=== PATIENT | male | born 1975 | race Caucasian/White ===

== ENCOUNTER → 2018-12-25 | Outpatient (CLI) | payer OTHER ==
--- NOTE | 2018-12-25 11:12 | Diagnostic Imaging Report ---
INDICATION: Injury to right knee. TECHNIQUE: AP and lateral views of the right knee were obtained. FINDINGS: No fracture or acute bony abnormality is seen. There is no overt joint effusion or joint space narrowing. IMPRESSION: Negative right knee. Dictated by: Dictated on workstation # [id number]
== END ==
LOC: RAD FS 10:35
PROVIDERS: ATTEND Family Medicine
DX: S89.91XA Unspecified injury of right lower leg, initial encounter (principal)
CPT/HCPCS: 73560

== ENCOUNTER 2019-12-31 17:54 | Emergency (ER) | payer SELFPAY ==
[~2019-12-31] VITALS: Ht 175.2 cm; Wt 96.4 kg
[2019-12-31] MEDS ORDERED: KETOROLAC 30 MG/ML VIAL IVP STA (18:36)
[2019-12-31] MEDS ORDERED: NS IV 1000 ML 1,000 ML IV STA (18:36)
--- NOTE | 2019-12-31 18:42 | ED Abdominal Pain ---
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 Sepsis Screen: No Definite Risk Source of Information: Patient History of Present Illness Date Seen by Provider: Dec 31, 2019 Time Seen by Provider: 18:11 Initial Comments 44-year-old male presenting with complaints of central abdominal pain. He states that he was at work in [facility] and lifted a cardboard box with empty dishwashing liquid bottles. He had to turn to move the box and as he did this he had sudden sharp stabbing pain just above his belly button. He went to his super visor and they excused him from work so he could go to be seen in the emergency department. He states that this is not a work comp case. He has not had pain like this before. He denies having any abdominal surgeries in the past. He has not taken anything for the pain. The pain is more severe with palpation, movement, bouncing movements in the car. He denies any nausea or vomiting. He has no change in his urination or bowel movements. He has no fever or chills. The pain has not moved since onset. Allergies and Home Medications Allergies Coded Allergies: Penicillins (Unverified Allergy, Unknown, 12/31/19) Home Medications Ibuprofen 800 Mg Tablet, 800 MG PO Q8H PRN for PAIN Prescribed by: SAMSON DILL on 12/31/191954 Tramadol HCl 50 Mg Tablet, 50 MG PO Q6H PRN for PAIN Prescribed by: SAMSON DILL on 12/31/191955 Patient Home Medication List Home Medication List Reviewed: Yes Review of Systems Review of Systems Constitutional: No chills, No fever, No malaise, No weakness EENTM: No Symptoms Reported Respiratory: No Symptoms Reported Cardiovascular: No Symptoms Reported Gastrointestinal: See HPI Genitourinary: No Symptoms Reported Musculoskeletal: no symptoms reported Skin: no symptoms reported Psychiatric/Neurological: No Symptoms Reported Endocrine: No Symptoms Reported Hematologic/Lymphatic: No Symptoms Reported Past Gztzqmb-Ctqrue-Vucgao Hx Past Med/Social Hx: Reviewed Nursing Past Med/Soc Hx Patient Social History Alcohol Use: Past History Recreational Drug Use: No Smoking Status: Current Everyday Smoker Type Used: Cigarettes 2nd Hand Smoke Exposure: Yes Recent Foreign Travel: No Contact w/Someone Who Travel: No Recent Infectious Disease Expo: No Recent Hopitalizations: No Physical Abuse: No Sexual Abuse: No Mistreated: No Fear: No Seasonal Allergies Seasonal Allergies: No Past Medical History Surgeries: Yes (Dental extractions) Respiratory: No Cardiac: No Neurological: No Genitourinary: No Gastrointestinal: No Musculoskeletal: No Endocrine: No HEENT: No Cancer: No Psychosocial: No Integumentary: No Blood Disorders: No Physical Exam Vital Signs Vital Signs - First Documented 12/31/19 17:55 Temp 37.4 Pulse 98 Resp 20 B/P (MAP) 147/92 (110) Pulse Ox 98 O2 Delivery Room Air Capillary Refill : Less Than 3 Seconds Height/Weight/BMI Height: '" Weight: lbs. oz. kg; 31.00 BMI Method: General Appearance: WD/WN, mild distress HEENT: PERRL/EOMI, pharynx normal Neck: non-tender, full range of motion, supple, normal inspection Respiratory: chest non-tender, lungs clear, normal breath sounds, no respiratory distress, no accessory muscle use Cardiovascular: normal peripheral pulses, regular rate, rhythm Gastrointestinal: normal bowel sounds, soft, no pulsatile mass; No distended; guarding (just above his umbilicus); No rebound; tenderness (just above his umbilicus where he has a palpable knot that feels like a possible ventral he rnia. It is very painful to palpation and he tenses up with palpation), hernia (possible ventral hernia just superior to his umbilicus) Rectal: deferred Extremities: normal range of motion, non-tender, normal inspection, no pedal edema, normal capillary refill Neurologic/Psychiatric: float phlebotomist II-XII nml as tested, alert, normal mood/affect, oriented x 3 Skin: normal color, warm/dry Progress/Results/Core Measures Results/Orders Lab Results Laboratory Tests Test 12/31/19 18:37 12/31/19 18:40 Range/Units Urine Color YELLOW Urine Clarity CLEAR Urine pH 6.5 5-9 Urine Specific Shirley 1.025 H 1.016-1.022 Urine Protein NEGATIVE NEGATIVE Urine Glucose (UA) NEGATIVE NEGATIVE Urine Ketones NEGATIVE NEGATIVE Urine Nitrite NEGATIVE NEGATIVE Urine Bilirubin NEGATIVE NEGATIVE Urine Urobilinogen 0.2 < = 1.0 MG/DL Urine Leukocyte Esterase NEGATIVE NEGATIVE Urine RBC (Auto) NEGATIVE NEGATIVE Urine RBC 0-2 /HPF Urine WBC 0-2 /HPF Urine Squamous Epithelial Cells 0-2 /HPF Urine Crystals NONE /LPF Urine Bacteria NEGATIVE /HPF Urine Casts NONE /LPF Urine Mucus MODERATE H /LPF Urine Culture Indicated NO White Blood Count 13.4 H 4.3-11.0 10^3/uL Red Blood Count 5.01 4.35-5.85 10^6/uL Hemoglobin 15.1 13.3-17.7 G/DL Hematocrit 45 40-54 % Mean Corpuscular Volume 90 80-99 FL Mean Corpuscular Hemoglobin 30 25-34 PG Mean Corpuscular Hemoglobin Concent 34 32-36 G/DL Red Cell Distribution Width 13.1 10.0-14.5 % Platelet Count 292 130-400 10^3/uL Mean Platelet Volume 9.3 7.4-10.4 FL Neutrophils (%) (Auto) 58 42-75 % Lymphocytes (%) (Auto) 30 12-44 % Monocytes (%) (Auto) 8 0-12 % Eosinophils (%) (Auto) 3 0-10 % Basophils (%) (Auto) 1 0-10 % Neutrophils # (Auto) 7.8 1.8-7.8 X 10^3 Lymphocytes # (Auto) 4.0 1.0-4.0 X 10^3 Monocytes # (Auto) 1.1 H 0.0-1.0 X 10^3 Eosinophils # (Auto) 0.4 H 0.0-0.3 10^3/uL Basophils # (Auto) 0.1 0.0-0.1 10^3/uL Neutrophils % (Manual) 58 % Lymphocytes % (Manual) 22 % Monocytes % (Manual) 7 % Eosinophils % (Manual) 3 % Basophils % (Manual) 1 % Band Neutrophils 1 % Atypical Lymphocytes 8 % Blood Morphology Comment NORMAL Sodium Level 140 135-145 MMOL/L Potassium Level 4.3 3.6-5.0 MMOL/L Chloride Level 103 98-107 MMOL/L Carbon Dioxide Level 27 21-32 MMOL/L Anion Gap 10 5-14 MMOL/L Blood Urea Nitrogen 9 7-18 MG/DL Creatinine 0.98 0.60-1.30 MG/DL Estimat Glomerular Filtration Rate > 60 BUN/Creatinine Ratio 9 Glucose Level 85 70-105 MG/DL Calcium Level 9.8 8.5-10.1 MG/DL Corrected Calcium 9.5 8.5-10.1 MG/DL Total Bilirubin 0.2 0.1-1.0 MG/DL Aspartate Amino Transf (AST/SGOT) 21 5-34 U/L Alanine Aminotransferase (ALT/SGPT) 23 0-55 U/L Alkaline Phosphatase 75 40-136 U/L Total Protein 7.2 6.4-8.2 GM/DL Albumin 4.4 3.2-4.5 GM/DL Lipase 16 8-78 U/L My Orders Orders - SAMSON DILL MD Comprehensive Metabolic Panel (12/31/19 18:36) Lipase (12/31/19 18:36) Ua Culture If Indicated (12/31/19 18:36) Ed Iv/Invasive Line Start (12/31/19 18:36) Cbc With Automated Diff (12/31/19 18:36) Ct Abdomen/Pelvis W (12/31/19 18:36) Ns Iv 1000 Ml (Sodium Chloride 0.9%) (12/31/19 18:36) Ketorolac Injection (Toradol Injection) (12/31/19 18:36) Iohexol Injection (Omnipaque 350 Mg/Ml 1 (12/31/19 18:45) Received Contrast (Hold Metformin- Contr (12/31/19 18:45) Sodium Chloride Flush (Catheter Flush Sy (12/31/19 18:45) Ns (Ivpb) (Sodium Chloride 0.9% Ivpb Bag (12/31/19 18:45) Manual Differential (12/31/19 18:40) Medications Given in ED Current Medications Medications Dose Ordered Sig/Bipin Route Start Time Stop Time Status Last Admin Dose Admin Iohexol 100 ml ONCE ONCE IV 12/31/19 18:45 12/31/19 18:46 DC 12/31/19 19:09 100 ML Sodium Chloride 10 ml NEEDED PRN IV 12/31/19 18:45 12/31/19 20:20 DC 12/31/19 19:09 10 ML Sodium Chloride 100 ml ONCE ONCE IV 12/31/19 18:45 12/31/19 18:46 DC 12/31/19 19:09 100 ML Vital Signs/I&O 12/31/19 12/31/19 12/31/19 17:55 18:44 20:14 Temp 37.4 37.4 Pulse 98 81 Resp 20 17 B/P (MAP) 147/92 (110) 140/77 Pulse Ox 98 99 O2 Delivery Room Air Room Air 01/01/20 00:00 Intake Total 1000 ml Balance 1000 ml Blood Pressure Mean: 110 Progress Progress Note #1: Progress Note Obtain labs and CT scan of abdomen and pelvis. Try Toradol for pain and see if that helps him relax enough that the area that feels like a hernia might reduce or improved. Progress Note #2: Progress Note On recheck at the patient his symptoms were improved after treatment. His labs showed a mild elevation of his white blood cell count. His chemistry panel did not show acute significant abnormality. His urine did not show infection. His CT scan showed a 1 cm midline defect in the abdominal wall. This contained a segment of omental fat. There is no evidence of incarceration. There were no intestines present in the hernia. I tried applying gentle direct constant pressure to the area of his abdomen of the defect and it felt like the swollen area of omental fat was reduced. He was not having the severe pain like when he initially presented. Counseled on follow-up and return precautions. Advised that he could see Dr. Craft with surgery on Sunday at 10:30 AM if he wanted to review his surgical options. I had spoke with Dr. Craft about the CT and physical exam findings after the CT scan report came back. I also advised patient that he could manage this electively provided he wasn't having severe pain or signs that he had intestines caught in the hernia. Diagnostic Imaging Diagonstic Imaging: CT Plain Films/CT/US/NM/MRI: abdomen, pelvis Comments NAME: YOLIS VILLALPANDO Marielena [facility] REC#: [id number] PT STATUS: REG ER : 1975 PHYSICIAN: SAMSON DILL MD ADMIT DATE: 12/31/19/DELMAR FS Draft Date of Exam:12/31/19 CT ABDOMEN/PELVIS W CT ABDOMEN/PELVIS W PROCEDURE: CT abdomen and pelvis with contrast. TECHNIQUE: Multiple contiguous axial images were obtained through the abdomen and pelvis after administration of intravenous contrast. All CT scans use one or more of the following dose optimizing techniques: automated exposure control, MA and/or KvP adjustment based on patient size and exam type or iterative reconstruction. INDICATION: Periumbilical pain after lifting injury. COMPARISON: None. FINDINGS: There is slight dependent atelectasis in the visualized right lung base with minimal 0.3 cm subpleural nodularity laterally in the right middle lobe. This may also be related to mild inflammation or scarring. There is a small hiatal hernia. There is mild low-density throughout the liver indicating steatosis. Gallbladder is contracted which limits evaluation. There is no evidence of biliary ductal dilatation. No pancreatic or splenic lesion is identified. Adrenal glands and kidneys are also unremarkable. There is an approximately 1 cm focal defect within the midline anterior abdominal wall several centimeters above the level of the umbilicus with protrusion of fat. There is mild associated edema or inflammation. No bowel hernia or obstruction is identified. The appendix has a normal appearance. There is no evidence of free fluid within the abdomen or pelvis. Urinary bladder is unopacified but otherwise unremarkable. Mild disc bulging is seen at the L2-L3 and L4-L5 levels. IMPRESSION: Small anterior abdominal wall defect in the midline just above the umbilicus with omental fat herniation. There may be mild associated inflammation, however no bowel hernia or obstruction is identified. Dictated on workstation # [id number] Dict: 12/31/191912 Trans: 12/31/191916 [id number] Interpreted by: DERICK BOLTON MD Electronically signed by: Departure Impression Primary Impression: Ventral hernia without obstruction or gangrene Disposition: 01 HOME, SELF-CARE Condition: Stable Departure-Patient Inst. Decision time for Depature: 19:49 Referrals: GEETHA CRAFT MD NO,LOCAL PHYSICIAN (PCP) Primary Care Physician Patient Instructions: Abdominal Hernia (DC), Abdominal Wall Hernias Add. Discharge Instructions: If you have worsening pain or have nausea with vomiting and uncontrolled pain then seek medical care immediately. Otherwise call and follow up with surgery for elective repair of your abdominal wall hernia. Dr. Craft can see you at 1030 on Sunday if you call his office in the morning and arrange for the appointment if you want to see him this week. Or you can wait and be seen when you decide you want to try and do something with the hernia. All discharge instructions reviewed with patient and/or family. Voiced understanding. Scripts Tramadol HCl (Tramadol HCl) 50 Mg Tablet 50 MG PO Q6H PRN for PAIN for 3 Days, #12 TAB 0 Refills Prov: SAMSON DILL MD 12/31/19 Ibuprofen (Ibuprofen) 800 Mg Tablet 800 MG PO Q8H PRN for PAIN for 10 Days, #30 TAB 0 Refills Prov: SAMSON DILL MD 12/31/19 Work/School Note: Work Release Form Date Seen in the Emergency Department: Dec 31, 2019 Return to Work: Jan 01, 2020 Restrictions: No Restrictions Images Torso/Trunk 1 - Severe, Tenderness, Other-See Progress Note Progress Initially he had severe tenderness with palpation of the midline area just above his umbilicus. There was a palpable swollen knot in this area consistent with a hernia. On repeat exam after treatment his pain with palpation was significantly impr anais and almost completely resolved. SAMSON DILL MD Dec 31, 2019 18:42
[2019-12-31] MEDS ORDERED: IOHEXOL 350 MG/ML 100 ML (OMNIPAQUE 350) VIAL IV ONE (18:45)
[2019-12-31] MEDS ORDERED: HOLD METFORMIN - RECEIVED CONTRAST 20 ML VIAL IV SCH (18:45)
[2019-12-31] MEDS ORDERED: CATHETER FLUSH 10 ML SYR IV PRN (18:45)
[2019-12-31] MEDS ORDERED: NS 100 ML (IVPB) BAG IV ONE (18:45)
[2019-12-31 18:51] LABS: BILIRUBIN,URINE NEGATIVE (NEGATIVE); CLARITY,URINE CLEAR; COLOR,URINE YELLOW; GLUCOSE, URINE (UA) NEGATIVE (NEGATIVE); KETONES,URINE NEGATIVE (NEGATIVE); LEUKOCYTE ESTERASE ,URINE NEGATIVE (NEGATIVE); NITRITE,URINE NEGATIVE (NEGATIVE); PH,URINE 6.5 (5-9); PROTEIN,URINE NEGATIVE (NEGATIVE); RBC,URINE 0-2 /HPF; WBC,URINE 0-2 /HPF
[2019-12-31 18:52] LABS: BACTERIA,URINE NEGATIVE /HPF; SQUAMOUS EPITHELIAL CELL,UR 0-2 /HPF
[2019-12-31 18:57] LABS: HEMATOCRIT 45 % (40-54); HEMOGLOBIN 15.1 G/DL (13.3-17.7); MEAN CORPUSCULAR HEMOGLOBIN 30 PG (25-34); MEAN CORPUSCULAR HGB CONC 34 G/DL (32-36); MEAN CORPUSCULAR VOLUME 90 FL (80-99); WHITE BLOOD COUNT 13.4 10^3/uL (4.3-11.0)
[2019-12-31 18:58] LABS: BASOPHILS # (AUTO) 0.1 10^3/uL (0.0-0.1); BASOPHILS % (AUTO) 1 % (0-10); EOSINOPHILS # (AUTO) 0.4 10^3/uL (0.0-0.3); EOSINOPHILS % (AUTO) 3 % (0-10); LYMPHOCYTES % (AUTO) 30 % (12-44); MEAN PLATELET VOLUME 9.3 FL (7.4-10.4); MONOCYTES # (AUTO) 1.1 X 10^3 (0.0-1.0); MONOCYTES % (AUTO) 8 % (0-12); NEUTROPHILS # (AUTO) 7.8 X 10^3 (1.8-7.8); NEUTROPHILS % (AUTO) 58 % (42-75); PLATELET COUNT 292 10^3/uL (130-400); RED CELL DISTRIBUTION WIDTH 13.1 % (10.0-14.5)
[2019-12-31 19:07] LABS: BUN/CREATININE RATIO 9; CARBON DIOXIDE 27 MMOL/L (21-32); CHLORIDE 103 MMOL/L (98-107); CREATININE SERUM 0.98 MG/DL (0.60-1.30); GFR ESTIMATED > 60; GLUCOSE 85 MG/DL (70-105); POTASSIUM 4.3 MMOL/L (3.6-5.0); SODIUM 140 MMOL/L (135-145)
[2019-12-31 19:08] LABS: ALANINE AMINOTRANSFERASE 23 U/L (0-55); ALBUMIN 4.4 GM/DL (3.2-4.5); ALKALINE PHOSPHATASE 75 U/L (40-136); BAND NEUTROPHILS 1 %; BASOPHILS % (MANUAL) 1 %; BILIRUBIN,TOTAL 0.2 MG/DL (0.1-1.0); CALCIUM 9.8 MG/DL (8.5-10.1); EOSINOPHILS % (MANUAL) 3 %; LIPASE 16 U/L (8-78); LYMPHOCYTES % (MANUAL) 22 %; MONOCYTES % (MANUAL) 7 %; NEUTROPHILS % (MANUAL) 58 %; TOTAL PROTEIN 7.2 GM/DL (6.4-8.2)
[2019-12-31 19:09] LABS: ATYPICAL LYMPHOCYTES 8 %; RBC MORPH NORMAL
--- NOTE | 2019-12-31 19:19 | Diagnostic Imaging Report ---
CT ABDOMEN/PELVIS W PROCEDURE: CT abdomen and pelvis with contrast. TECHNIQUE: Multiple contiguous axial images were obtained through the abdomen and pelvis after administration of intravenous contrast. All CT scans use one or more of the following dose optimizing techniques: automated exposure control, MA and/or KvP adjustment based on patient size and exam type or iterative reconstruction. INDICATION: Periumbilical pain after lifting injury. COMPARISON: None. FINDINGS: There is slight dependent atelectasis in the visualized right lung base with minimal 0.3 cm subpleural nodularity laterally in the right middle lobe. This may also be related to mild inflammation or scarring. There is a small hiatal hernia. There is mild low-density throughout the liver indicating steatosis. Gallbladder is contracted which limits evaluation. There is no evidence of biliary ductal dilatation. No pancreatic or splenic lesion is identified. Adrenal glands and kidneys are also unremarkable. There is an approximately 1 cm focal defect within the midline anterior abdominal wall several centimeters above the level of the umbilicus with protrusion of fat. There is mild associated edema or inflammation. No bowel hernia or obstruction is identified. The appendix has a normal appearance. There is no evidence of free fluid within the abdomen or pelvis. Urinary bladder is unopacified but otherwise unremarkable. Mild disc bulging is seen at the L2-L3 and L4-L5 levels. IMPRESSION: Small anterior abdominal wall defect in the midline just above the umbilicus with omental fat herniation. There may be mild associated inflammation, however no bowel hernia or obstruction is identified. Dictated by: Dictated on workstation # [id number]
[2019-12-31] MEDS ORDERED: TRM50T PO (19:55)
[2019-12-31] MEDS ORDERED: IBUP-1780 PO (19:55)
[2019-12-31 20:14] VITALS: BP 140/77
--- OUTSIDE RECORDS SUMMARY | 2020-01-05 10:34 | XMS REPORT | Continuity of Care Document ---
Author Organization Unknown Address Unknown Phone Unavailable Allergies Active Description Code Type Severity Reaction Onset Reported/Identified Relationship to Patient Clinical Status Yes Penicillins [id number] Drug Aller gy Unknown N/A 12/31/2019 Medications There is no data. Problems Date Dx Coded Attending Type Code Diagnosis Diagnosed By 12/31/2018 ABRAHAM WALKER DO Ot S89.91XA UNSPECIFIED INJURY OF RIGHT LOWER LEG, I 01/01/2019 ABRAHAM WALKER DO Ot S89.91XA UNSPECIFIED INJURY OF RIGHT LOWER LEG, I Procedures There is no data. Results Test Result Range Complete urinalysis with reflex to cultu re - 12/31/19 18:37 Urine color determination YELLOW NRG Urine clarity determination CLEAR NR G Urine pH measurement by test strip 6.5 5-9 Specific gravity of urine by test strip 1.025 1.016-1.022 Urine protein assay by test strip, semi-quantitative NEGATIVE NEGATIVE Urine glucose detection by automated test strip NE GATIVE NEGATIVE Erythrocytes detection in urine sediment by light micr oscopy NEGATIVE NEGATIVE Urine ketones detection by automated test strip NE GATIVE NEGATIVE Urine nitrite detection by test strip NEGATIVE NEGATIVE Urine total bilirubin detection by test strip NEGA TIVE NEGATIVE Urine urobilinogen measurement by automated test strip (mass/volume) 0.2 mg/dL < = 1.0 Urine leukocyte esterase detection by dipstick NEG ATIVE NEGATIVE Automated urine sediment erythrocyte cou nt by microscopy (number/high power field) [HPF] NRG Automated urine sediment leukocyte count by microscopy (number/high power field) [HPF] NRG Bacteria detection in urine sediment by light microsco py NEGATIVE NRG Squamous epithelial cells detection in u rine sediment by light microscopy 0-2 NRG Crystals detection in urine sediment by light microsco py NONE NRG Casts detection in urine sediment by light microscopy NONE NRG Mucus detection in urine sediment by light microscopy MODERATE NRG Complete urinalysis with reflex to culture NO NRG Complete blood count (CBC) with automate d white blood cell (WBC) differential - 12/31/19 18:40 Blood leukocytes automated count (number/volume) 13.4 10*3/uL 4.3-11.0 Blood erythrocytes automated count (number/volume) 5.01 10*6/uL 4.35-5.85 Venous blood hemoglobin measurement (mass/volume) 15.1 g/dL 13.3-17.7 Blood hematocrit (volume fraction) 45 % 40-54 Automated erythrocyte mean corpuscular volume 90 [ foz_us] 80-99 Automated erythrocyte mean corpuscular h emoglobin (mass per erythrocyte) 30 pg 25-34 Automated erythrocyte mean corpuscular h emoglobin concentration measurement (mass/volume) 34 g/dL 32-36 Automated erythrocyte distribution width ratio 13. 1 % 10.0- 14.5 Automated blood platelet count (count/volume) 292 10*3/uL 130-400 Automated blood platelet mean volume measurement 9.3 [foz_us] 7.4-10.4 Automated blood neutrophils/100 leukocytes 58 % 42-75 Automated blood lymphocytes/100 leukocytes 30 % 12-44 Blood monocytes/100 leukocytes 8 % 0-12 Automated blood eosinophils/100 leukocytes 3 % 0-10 Automated blood basophils/100 leukocytes 1 % 0-10 Blood neutrophils automated count (number/volume) 7.8 10*3 1.8-7.8 Blood lymphocytes automated count (number/volume) 4.0 10*3 1.0-4.0 Blood monocytes automated count (number/volume) 1. 1 10*3 0.0-1.0 Automated eosinophil count 0.4 10*3/uL 0 .0-0.3 Automated blood basophil count (count/volume) 0.1 10*3/uL 0.0-0.1 Comprehensive metabolic panel - 12/31/19 18:40 Serum or plasma sodium measurement (moles/volume) 140 mmol/L 135-145 Serum or plasma potassium measurement (moles/volume) 4.3 mmol/L 3.6-5.0 Serum or plasma chloride measurement (moles/volume) 103 mmol/L 98-107 Carbon dioxide 27 mmol/L 21-32 Serum or plasma anion gap determination (moles/volume) 10 mmol/L 5-14 Serum or plasma urea nitrogen measurement (mass/volume ) 9 mg/dL 7-18 Serum or plasma creatinine measurement (mass/volume) 0.98 mg/dL 0.60-1.30 Serum or plasma urea nitrogen/creatinine mass ratio 9 NRG Serum or plasma creatinine measurement w ith calculation of estimated glomerular filtration rate > NRG Serum or plasma glucose measurement (mass/volume) 85 mg/dL 70-105 Serum or plasma calcium measurement (mass/volume) 9.8 mg/dL 8.5-10.1 Serum or plasma total bilirubin measurement (mass/volu me) 0.2 mg/dL 0.1-1.0 Serum or plasma alkaline phosphatase pedro surement (enzymatic activity/volume) 75 U/L 40-136 Serum or plasma aspartate aminotransfera se measurement (enzymatic activity/volume) 21 U/L 5-34 Serum or plasma alanine aminotransferase measurement (enzymatic activity/volume) 23 U/L 0-55 Serum or plasma protein measurement (mass/volume) 7.2 g/dL 6.4-8.2 Serum or plasma albumin measurement (mass/volume) 4.4 g/dL 3.2-4.5 CALCIUM CORRECTED 9.5 mg/dL 8.5-10.1 Lipase - 12/31/19 18:40 Lipase 16 U/L 8-78 Manual absolute plasma cell count - 02/15 18:40 Blood monocytes/100 leukocytes 7 % NRG Manual blood segmented neutrophils/100 leukocytes 58 % NRG Blood band neutrophils/100 leukocytes 1 % NRG Manual blood lymphocytes/100 leukocytes 22 % NRG Manual eosinophils/100 leukocytes in nose 3 % NRG Manual blood basophils/100 leukocytes 1 % NRG Manual blood lymphocytes variant/100 leukocytes 8 % NRG Blood erythrocyte morphology finding identification NORMAL NRG Encounters ACCT No. Visit Date/Time Discharge Status Pt. Type Provider Facility Loc./Unit Complaint [id number] 12/31/2019 17:56:00 020 20:14:00 DIS Emergency ANIYAH COTA, SAMSON Peguero [facility] ER FS ABD PAIN,KNOT IN ABD [id number] 12/25/2018 10:35:00 019 23:59:59 CLS Outpatient ABRAHAM WALKER DO [facility] RAD FS RIGHT KNEE XRAY
--- OUTSIDE RECORDS SUMMARY | 2020-01-05 10:34 | XMS REPORT ---
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 Name Role Phone EFRAÍN PATEL Unavailable PROBLEMS Unknown Problems ALLERGIES Substance Reaction Event Type Date Status Penicillin G Potassium Unknown Drug Allergy Jun, Activ e ENCOUNTERS Encounter Location Date Diagnosis [facility] [address] [facility] [id number] [place], [place] [id number] Jun, Dental examination Z01.20 IMMUNIZATIONS No Known Immunizations SOCIAL HISTORY Never Assessed REASON FOR VISIT DEL PLAN OF CARE Activity Details Follow Up TE Reason: VITAL SIGNS Blood pressure systolic 137 mmHg 2017-07-23 Blood pressure diastolic 82 mmHg 2017-07-23 MEDICATIONS Medication Instructions Dosage Frequency Start Date End Date Duration S tatus Bactrim Active Magic Mouthwash Apply medicated swab to sore areas of the mouth to numb the pain As needed Dip cotton swab into medication Jun, As needed Active Clindamycin HCl 300 MG Orally every 6 hrs 1 capsule 6h 10 days Active [place] 7.5-325 MG Orally every 4- 6 hrs prn dental pain 1-2 tablets as needed Active Align 4 MG Orally Once a day 1 capsule 24h 14 days A ctive RESULTS No Results PROCEDURES Procedure Date Ordered Result Body Site LTD ORAL EVALUATION - PROBLEM FOCUS Jul 23, 2017 PANORAMIC FILM SEE ALSO CODE [id number] Jul 23, 2017 INSTRUCTIONS MEDICATIONS ADMINISTERED No Known Medications MEDICAL (GENERAL) HISTORY Type Description Date Medical History bronchitis Medical History migraine Medical History pneumonia Medical History hives Medical History ulcers Medical History arthritis
== END 2019-12-31 20:14 | disposition home or self-care (01) ==
LOC: EDUNIT# 17:54 → ER FS 17:56
DX: K43.9 Ventral hernia without obstruction or gangrene (principal); F17.210 Nicotine dependence, cigarettes, uncomplicated; Z88.0 Allergy status to penicillin
CPT/HCPCS: 36415; 74177; 80053; 81000; 83690; 85007; 85027